=== PATIENT | female | born 1970 | race Caucasian/White ===

== ENCOUNTER 2017-10-06 12:33 | Observation (INO) | payer OTHER ==
[~2017-10-06] VITALS: Ht 152.4 cm; Wt 48.0 kg
[~2017-10-06 12:33] MED LIST: DEXAMETHASONE SOD PHOS 4 MG/ML VIAL IV ONE; ESMOLOL HCL 100 MG/10 ML VIAL IV ONE; KETOROLAC TROMETHAMINE 30 MG/ML (IVP) VIAL IV PUSH ONE; LIDOCAINE HCL 1% PF 5 ML SYRINGE OTHER ONE; ONDANSETRON HCL 4 MG/2 ML VIAL IV ONE; PHENYLEPH/NS 1000 MCG/10 ML SYR IV ONE; PROPOFOL 200 MG/20 ML AMP IV ONE; ROCURONIUM INJ 50 MG/5 ML SYRINGE IV PUSH ONE; ePHEDrine/NS 25 MG/5 ML SYRINGE IV ONE
[2017-10-06 12:43] VITALS: BP 116/55; PULSE 89; RESP 20; TEMP 98.7; O2SAT 100
[2017-10-06] MEDS ORDERED: SODIUM CHLOR 0.9% 1000 ML INJ 1,000 ML IV SCH (12:48)
[2017-10-06] MEDS ORDERED: DIATRIZOATE MEGLUM/DIATRIZOATE SOD 9 ML CUP ONE (12:53)
[2017-10-06] MEDS ORDERED: SODIUM CHLORIDE 0.9% FLUSH 10 ML FLUSH IV FLUSH PRN ×2 (13:00→19:45)
[2017-10-06] MEDS ORDERED: ONDANSETRON HCL 4 MG/2 ML VIAL IVP ONE (13:00)
[2017-10-06 13:32] LABS: AUTOMATED NEUTROPHIL # 10.5 TH/MM3 (1.8-7.7); BASOPHIL % 0.2 % (0.0-2.0); EOSINOPHIL % 0.1 % (0.0-4.0); HEMATOCRIT 43.3 % (35.0-46.0); LYMPH % 10.3 % (9.0-44.0); LYMPHOCYTE # 1.3 TH/MM3 (1.0-4.8); MEAN CELL VOLUME 91.7 FL (80.0-100.0); MEAN CORPUSCULAR HEMOGLOBIN 31.7 PG (27.0-34.0); MEAN CORPUSCULAR HGB CONC 34.6 % (32.0-36.0); MEAN PLATELET VOLUME 7.4 FL (7.0-11.0); MONO % 9.1 % (0.0-8.0); MONOCYTE # 1.2 TH/MM3 (0-0.9); NEUT % 80.3 % (16.0-70.0); PLATELET COUNT 255 TH/MM3 (150-450); RED BLOOD COUNT 4.72 MIL/MM3 (4.00-5.30); RED CELL DISTRIBUTION WIDTH 12.5 % (11.6-17.2); WHITE BLOOD COUNT 13.1 TH/MM3 (4.0-11.0)
[2017-10-06 13:38] LABS: BACTERIA, URINE RARE /hpf; BILIRUBIN, URINE NEG (NEG); BLOOD, URINE SMALL (NEG); GLUCOSE,URINE NEG (NEG); KETONE, URINE 40 mg/dL (NEG); MUCUS URINE FEW /lpf (OCC); NITRITE,URINE NEG (NEG); PH, URINE 7.5 (5.0-8.5); SQUAMOUS EPITHELIAL CELL URINE <1 /hpf (0-5); URINE COLOR YELLOW (YELLW/STRAW); URINE LEUKOCYTE ESTERASE NEG (NEG)
[2017-10-06 13:58] LABS: ALBUMIN 4.2 GM/DL (3.4-5.0); ALT (GPT) 19 U/L (10-53); AST (GOT) 13 U/L (15-37); BICARBONATE 25.8 MEQ/L (21.0-32.0); BLOOD UREA NITROGEN 8 MG/DL (7-18); CALCIUM 8.9 MG/DL (8.5-10.1); CHLORIDE 105 MEQ/L (98-107); CREATININE 0.62 MG/DL (0.50-1.00); GLOMERULAR FILTRATION RATE 102 ML/MIN (>89); GLUCOSE,RANDOM 97 MG/DL (74-106); SODIUM (NA) 138 MEQ/L (136-145)
[2017-10-06 14:00] LABS: ALKALINE PHOSPHATASE 69 U/L (45-117); TOTAL BILIRUBIN ADULT 3.1 MG/DL (0.2-1.0); TOTAL PROTEIN 8.1 GM/DL (6.4-8.2)
[2017-10-06] MEDS ORDERED: OMEP20TA93 PO (14:14)
[2017-10-06] MEDS ORDERED: MORPHINE SULFATE 4 MG/ML INJ IV PUSH ONE (14:15)
[2017-10-06 14:18] VITALS: O2SAT 100
--- NOTE | 2017-10-06 14:18 | PD ---
HPI Chief Complaint: Abdominal Pain Time Seen by Provider: 14:08 Travel History International Travel<30 days: No Contact w/Intl Traveler<30days: No Traveled to known affect area: No History of Present Illness HPI 47-year-old female presents to the emergency department for evaluation of abdominal pain that started yesterday. Patient states she went to an urgent care who referred her to the emergency department for further evaluation. Patient reports periumbilical or right lower quadrant abdominal pain that radiates to the back and across the lower abdomen. She currently rates the pain 9/10, sharp and stabbing. She denies any fevers or chills. No chest pain or shortness breath. She reports vomiting 1 at 1 AM. No diarrhea or constipation. No urinary symptoms. Patient does not currently take any prescribed medications. She reports history of hysterectomy and bladder sling. No exacerbating or alleviating factors. Moderate severity. PFSH Past Medical History Diminished Hearing: No GERD: Yes Tetanus Vaccination: < 5 Years Influenza Vaccination: No ?: Not Past Surgical History Genitourinary Surgery: Yes (bladder sling) Hysterectomy: Yes Social History Alcohol Use: Yes (on occasion) Tobacco Use: No Substance Use: No Allergies-Medications (Allergen,Severity, Reaction): Coded Allergies: sulfamethoxazole (Verified Allergy, Unknown, 10/06/17) trimethoprim (Verified Allergy, Unknown, 10/06/17) Uncoded Allergies: DEPOVERA (Adverse Reaction, Intermediate, HIVES, 10/06/17) Reported Meds & Prescriptions Reported Meds & Active Scripts Active Reported Omeprazole 20 Mg Tab 20 Mg PO DAILY Review of Systems Except as stated in HPI: all other systems reviewed are Neg Physical Exam Narrative GENERAL: Well-nourished, well-developed female patient, afebrile. SKIN: Focused skin assessment warm/dry. HEAD: Normocephalic. Atraumatic. EYES: No scleral icterus. No injection or drainage. NECK: Supple, trachea midline. No JVD or lymphadenopathy. CARDIOVASCULAR: Regular rate and rhythm without murmurs, gallops, or rubs. RESPIRATORY: Breath sounds equal bilaterally. No accessory muscle use. Lungs sounds are clear to auscultation. GASTROINTESTINAL: Abdomen soft and nondistended. Patient has tenderness to RLQ to McBurney's point. MUSCULOSKELETAL: No cyanosis, or edema. BACK: Nontender without obvious deformity. No CVA tenderness. Data Data Last Documented VS Vital Signs Date Time Temp Pulse Resp B/P (MAP) Pulse Ox O2 Delivery O2 Flow Rate FiO2 10/06/17 16:43 94 19 105/60 (75) 97 Room Air 10/06/17 12:43 98.7 Orders Orders Complete Blood Count With Diff (10/06/17 12:45) Comprehensive Metabolic Panel (10/06/17 12:45) Urinalysis - C+S If Indicated (10/06/17 12:45) Lipase (10/06/17 12:45) Ct Abd/Pel W Iv Contrast(Rout) (10/06/17 12:48) Iv Access Insert/Monitor (10/06/17 12:48) Ecg Monitoring (10/06/17 12:48) Oximetry (10/06/17 12:48) Ondansetron Inj (Zofran Inj) (10/06/17 13:00) Sodium Chlor 0.9% 1000 Ml Inj (Ns 1000 M (10/06/17 12:48) Sodium Chloride 0.9% Flush (Ns Flush) (10/06/17 13:00) Diatrizoate Liq ( Gastroview Liq) (10/06/17 12:53) Oral Contrast - Adult (10/06/17 13:40) Morphine Inj (Morphine Inj) (10/06/17 14:15) Iohexol 350 Inj (Omnipaque 350 Inj) (10/06/17 14:41) Piperacil-Tazo 4.5 Gm Premix (Zosyn 4.5 (10/06/17 17:15) Admit Order (Ed Use Only) (10/06/17 17:13) Labs Laboratory Tests Test 10/06/17 13:12 White Blood Count 13.1 TH/MM3 Red Blood Count 4.72 MIL/MM3 Hemoglobin 15.0 GM/DL Hematocrit 43.3 % Mean Corpuscular Volume 91.7 FL Mean Corpuscular Hemoglobin 31.7 PG Mean Corpuscular Hemoglobin Concent 34.6 % Red Cell Distribution Width 12.5 % Platelet Count 255 TH/MM3 Mean Platelet Volume 7.4 FL Neutrophils (%) (Auto) 80.3 % Lymphocytes (%) (Auto) 10.3 % Monocytes (%) (Auto) 9.1 % Eosinophils (%) (Auto) 0.1 % Basophils (%) (Auto) 0.2 % Neutrophils # (Auto) 10.5 TH/MM3 Lymphocytes # (Auto) 1.3 TH/MM3 Monocytes # (Auto) 1.2 TH/MM3 Eosinophils # (Auto) 0.0 TH/MM3 Basophils # (Auto) 0.0 TH/MM3 CBC Comment DIFF FINAL Differential Comment Urine Color YELLOW Urine Turbidity CLEAR Urine pH 7.5 Urine Specific [place] 1.010 Urine Protein NEG mg/dL Urine Glucose (UA) NEG mg/dL Urine Ketones 40 mg/dL Urine Occult Blood SMALL Urine Nitrite NEG Urine Bilirubin NEG Urine Urobilinogen LESS THAN 2.0 MG/DL Urine Leukocyte Esterase NEG Urine RBC 4 /hpf Urine WBC LESS THAN 1 /hpf Urine Squamous Epithelial Cells <1 /hpf Urine Bacteria RARE /hpf Urine Mucus FEW /lpf Microscopic Urinalysis Comment CULT NOT INDICATED Blood Urea Nitrogen 8 MG/DL Creatinine 0.62 MG/DL Random Glucose 97 MG/DL Total Protein 8.1 GM/DL Albumin 4.2 GM/DL Calcium Level 8.9 MG/DL Alkaline Phosphatase 69 U/L Aspartate Amino Transf (AST/SGOT) 13 U/L Alanine Aminotransferase (ALT/SGPT) 19 U/L Total Bilirubin 3.1 MG/DL Sodium Level 138 MEQ/L Potassium Level 3.6 MEQ/L Chloride Level 105 MEQ/L Carbon Dioxide Level 25.8 MEQ/L Anion Gap 7 MEQ/L Estimat Glomerular Filtration Rate 102 ML/MIN Lipase 90 U/L [facility] Medical Decision Making Medical Screen Exam Complete: Yes Emergency Medical Condition: Yes Medical Record Reviewed: Yes Differential Diagnosis Last Impressions Abdomen/Pelvis CT 10/06/17 1248 Signed Impressions: Service Date/Time: October 14:39 - CONCLUSION: The appendix is prominent. There is a calcification at the origin of the appendix and within the appendiceal lumen however the wall does not appear to be thickened and there is some residual air within the appendix. I don't see significant inflammatory stranding around the appendix to suggest appendicitis. Kareem Block MD Narrative Course 47 year old female presents to the emergency department for evaluation of right lower quadrant pain that started last night with 1 episode of vomiting. On exam , patient has tenderness over RLQ. CBC, CMP, Lipase, UA are ordered and pending. CT abdomen/pelvis with PO/IV contrast are ordered and pending. Patient is given NS 1 L IV bolus, Morphine 4 mg IV, Zofran 4 mg IV. CBC shows leukocytosis 13.1. CMP shows elevated bilirubin 3.1. Lipase is 90. UA shows no evidence of acute infection. CT abdomen/pelvis shows the appendix is prominent, there is a calcification at the origin of the appendix and within the appendiceal lumen however the wall does not appear to be thickened and there is some residual air within the appendix. I don't see significant inflammatory stranding around the appendix to suggest appendicitis. My attending physician, saw the patient and recommended general surgeon be contacted to review CT imaging. I spoke with Dr. Montaño who reviewed CT imaging. He states he will be down in approximately 30 mins to evaluate the patient. Dr. Montaño evaluated the patient and is concerned the patient has acute appendicitis. He is going to take the patient to the OR. Zosyn 4.5 gm IV is ordered. Diagnosis Primary Impression: Acute appendicitis Qualified Codes: K35.80 - Unspecified acute appendicitis Admitting Information Admitting Physician Requests: Destiny Boles Oct 06, 2017 14:18
[2017-10-06 14:19] VITALS: BP 119/59; PULSE 99; RESP 20; O2SAT 100
[2017-10-06] MEDS ORDERED: IOHEXOL 350 MG/ML 10 ML VIAL (for RAD DIAG) IVCONTRAST ONE (14:41)
--- NOTE | 2017-10-06 14:53 | RADRPT ---
EXAM DATE/TIME: 10/06/2017 14:39 [facility] COMPARISON: No previous studies available for comparison. INDICATIONS : Left sided tenderness for one day. IV CONTRAST: 80 cc Omnipaque 350 (iohexol) IV ORAL CONTRAST: Prescribed oral contrast ingested. RADIATION DOSE: 6.64 CTDIvol (mGy) MEDICAL HISTORY : None SURGICAL HISTORY : None. ENCOUNTER: Initial ACUITY: 1 day PAIN SCALE: 8/10 LOCATION: Left lower quadrant TECHNIQUE: Volumetric scanning of the abdomen and pelvis was performed. Using automated exposure control and ad justment of the mA and/or kV according to patient size, radiation dose was kept as low as reasonably achievable to obtain optimal diagnostic quality images. DICOM format image data is available electro nically for review and comparison. FINDINGS: LOWER LUNGS: The visualized lower lungs are clear. LIVER: Homogeneous density without lesion except 3 benign cysts. There is no dilation of the biliary tree. No calcified gallstones. SPLEEN: Normal size without lesion. PANCREAS: Within normal limits. KIDNEYS: Normal in size and shape. There is no mass, stone or hydronephrosis. ADRENAL GLANDS: Within normal limits. VASCULAR: There is no aortic aneurysm. BOWEL/MESENTERY: The stomach, small bowel, and colon demonstrate no acute abnormality. There is no free intraperitone al air or fluid. Small calcification at the origin of the appendix and a least 2 small calcification within the appendix itself but no definite wall thickening or periappendiceal stranding. There is flu id and air within the appendix. ABDOMINAL WALL: Within normal limits. RETROPERITONEUM: There is no lymphadenopathy. BLADDER: No wall thickening or mass. REPRODUCTIVE: Within normal limits. INGUINAL: There is no lymphadenopathy or hernia. MUSCULOSKELETAL: Within normal limits for patient age. CONCLUSION: The appendix is prominent. There is a calcification at the origin of the appendix and within the appe ndiceal lumen however the wall does not appear to be thickened and there is some residual air within the appendix. I don't see significant inflammatory stranding around the appendix to suggest appendicitis. Kareem Block MD on October 06, 2017 at 14:49 Board Certified Radiologist. This report was verified electronically.
--- NOTE | 2017-10-06 16:27 | PD ---
Data Data Last Documented VS Vital Signs Date Time Temp Pulse Resp B/P (MAP) Pulse Ox O2 Delivery O2 Flow Rate FiO2 10/06/17 14:19 99 20 119/59 (79) 100 Room Air 10/06/17 12:43 98.7 Orders Orders Complete Blood Count With Diff (10/06/17 12:45) Comprehensive Metabolic Panel (10/06/17 12:45) Urinalysis - C+S If Indicated (10/06/17 12:45) Lipase (10/06/17 12:45) Ct Abd/Pel W Iv Contrast(Rout) (10/06/17 12:48) Iv Access Insert/Monitor (10/06/17 12:48) Ecg Monitoring (10/06/17 12:48) Oximetry (10/06/17 12:48) Ondansetron Inj (Zofran Inj) (10/06/17 13:00) Sodium Chlor 0.9% 1000 Ml Inj (Ns 1000 M (10/06/17 12:48) Sodium Chloride 0.9% Flush (Ns Flush) (10/06/17 13:00) Diatrizoate Liq ( Gastroview Liq) (10/06/17 12:53) Oral Contrast - Adult (10/06/17 13:40) Morphine Inj (Morphine Inj) (10/06/17 14:15) Iohexol 350 Inj (Omnipaque 350 Inj) (10/06/17 14:41) Labs Laboratory Tests Test 10/06/17 13:12 White Blood Count 13.1 TH/MM3 Red Blood Count 4.72 MIL/MM3 Hemoglobin 15.0 GM/DL Hematocrit 43.3 % Mean Corpuscular Volume 91.7 FL Mean Corpuscular Hemoglobin 31.7 PG Mean Corpuscular Hemoglobin Concent 34.6 % Red Cell Distribution Width 12.5 % Platelet Count 255 TH/MM3 Mean Platelet Volume 7.4 FL Neutrophils (%) (Auto) 80.3 % Lymphocytes (%) (Auto) 10.3 % Monocytes (%) (Auto) 9.1 % Eosinophils (%) (Auto) 0.1 % Basophils (%) (Auto) 0.2 % Neutrophils # (Auto) 10.5 TH/MM3 Lymphocytes # (Auto) 1.3 TH/MM3 Monocytes # (Auto) 1.2 TH/MM3 Eosinophils # (Auto) 0.0 TH/MM3 Basophils # (Auto) 0.0 TH/MM3 CBC Comment DIFF FINAL Differential Comment Urine Color YELLOW Urine Turbidity CLEAR Urine pH 7.5 Urine Specific [place] 1.010 Urine Protein NEG mg/dL Urine Glucose (UA) NEG mg/dL Urine Ketones 40 mg/dL Urine Occult Blood SMALL Urine Nitrite NEG Urine Bilirubin NEG Urine Urobilinogen LESS THAN 2.0 MG/DL Urine Leukocyte Esterase NEG Urine RBC 4 /hpf Urine WBC LESS THAN 1 /hpf Urine Squamous Epithelial Cells <1 /hpf Urine Bacteria RARE /hpf Urine Mucus FEW /lpf Microscopic Urinalysis Comment CULT NOT INDICATED Blood Urea Nitrogen 8 MG/DL Creatinine 0.62 MG/DL Random Glucose 97 MG/DL Total Protein 8.1 GM/DL Albumin 4.2 GM/DL Calcium Level 8.9 MG/DL Alkaline Phosphatase 69 U/L Aspartate Amino Transf (AST/SGOT) 13 U/L Alanine Aminotransferase (ALT/SGPT) 19 U/L Total Bilirubin 3.1 MG/DL Sodium Level 138 MEQ/L Potassium Level 3.6 MEQ/L Chloride Level 105 MEQ/L Carbon Dioxide Level 25.8 MEQ/L Anion Gap 7 MEQ/L Estimat Glomerular Filtration Rate 102 ML/MIN Lipase 90 U/L MDM Supervised Visit with KARYN: Yes Narrative Course I spoke with and examined this patient. She has abdominal pain that started yesterday evening. She has nausea and decreased appetite. Her right lower quadrant is significantly tender. Labs and CT imaging were done. Her appendix is prominent but no inflammatory stranding around it. Radiologist was not overly suspicious about appendicitis but on a clinical basis it is concerning given her symptoms and right lower quadrant tenderness without any obvious explanation otherwise General surgeon Dr. Montaño is going to come down to the ER and evaluate the patient to decide whether she should have appendectomy or not Diagnosis Primary Impression: Right lower quadrant pain Brady Soares MD Oct 06, 2017 16:27
[2017-10-06 16:43] VITALS: BP 105/60; PULSE 94; RESP 19; O2SAT 97
[2017-10-06] MEDS ORDERED: PIPERACIL-TAZO 4.5 GM PREMIX 100 ML IV ONE (17:15)
--- NOTE | 2017-10-06 17:22 | HHI.HP ---
HPI Service General surgery Primary Care Physician Drew Quiles MD Admission Diagnosis acute appendicitis Chief Complaint: Abdominal pain History of Present Illness The patient is a 47-year-old female who presents with abdominal pain. The pain began as periumbilical pain last night around 7 PM. It progressed and became more severe and also localized in the right lower abdomen and she presented to the emergency department today. She has had vomiting and nausea. Denies fever or chills. She has a past surgical history of a hysterectomy and bladder sling. She was noted to have leukocytosis of 13,000. CT abdomen and pelvis shows an enlarged appendix with appendicolith at the base. I reviewed the images. Review of Systems Constitutional: DENIES: Fever, Chills Eyes: DENIES: Eye inflammation, Eye pain Respiratory: DENIES: Cough, Wheezing Cardiovascular: DENIES: Chest pain, Palpitations Gastrointestinal: COMPLAINS OF: Abdominal pain, Nausea, Vomiting Genitourinary: DENIES: Dysuria, Vaginal discharge Musculoskeletal: DENIES: Muscle aches Neurologic: DENIES: Paresthesias, Seizures Past Family Social History Past Medical History Reflux Past Surgical History Hysterectomy and bladder sling Reported Medications Omeprazole Allergies: Coded Allergies: sulfamethoxazole (Verified Allergy, Unknown, 10/06/17) trimethoprim (Verified Allergy, Unknown, 10/06/17) Uncoded Allergies: DEPOVERA (Adverse Reaction, Intermediate, HIVES, 10/06/17) Active Ordered Medications Current Medications Medications (Trade) Dose Ordered Sig/Vickie Route Start Time Stop Time Status Last Admin (NS Flush) 2 ml UNSCH PRN IV FLUSH 10/06/17 13:00 Piperacillin Sod/ Tazobactam Sod 100 ml @ 200 mls/hr ONCE ONCE IV 10/06/17 17:15 10/06/17 17:44 Family History Noncontributory Social History Occasional alcohol. No tobacco or drug use. Physical Exam Vital Signs Vital Signs Date Time Temp Pulse Resp B/P (MAP) Pulse Ox O2 Delivery O2 Flow Rate FiO2 10/06/17 16:43 94 19 105/60 (75) 97 Room Air 3/1/18 14:19 99 20 119/59 (79) 100 Room Air 10/06/17 14:18 100 Room Air 10/06/17 12:43 98.7 89 20 116/55 (75) 100 Physical Exam GENERAL: Awake and alert. Appears somewhat ill.. Cooperative. HEAD: Normocephalic. Atraumatic. EYES: Pupils equal round and reactive to light bilaterally. No scleral icterus. ENT: Moist oral mucosa. NECK: Trachea midline. CHEST: Lungs clear to auscultation bilaterally with no wheezing or rhonchi. No respiratory distress. CARDIOVASCULAR: Regular rate and rhythm. ABDOMEN: Rebound tenderness in the right lower quadrant and suprapubic area. Soft. No guarding. EXTREMITIES: No cyanosis or edema. SKIN: Warm, dry, nonjaundiced. Laboratory Laboratory Tests Test 10/06/17 13:12 White Blood Count 13.1 Red Blood Count 4.72 Hemoglobin 15.0 Hematocrit 43.3 Mean Corpuscular Volume 91.7 Mean Corpuscular Hemoglobin 31.7 Mean Corpuscular Hemoglobin Concent 34.6 Red Cell Distribution Width 12.5 Platelet Count 255 Mean Platelet Volume 7.4 Neutrophils (%) (Auto) 80.3 Lymphocytes (%) (Auto) 10.3 Monocytes (%) (Auto) 9.1 Eosinophils (%) (Auto) 0.1 Basophils (%) (Auto) 0.2 Neutrophils # (Auto) 10.5 Lymphocytes # (Auto) 1.3 Monocytes # (Auto) 1.2 Eosinophils # (Auto) 0.0 Basophils # (Auto) 0.0 CBC Comment DIFF FINAL Differential Comment Urine Color YELLOW Urine Turbidity CLEAR Urine pH 7.5 Urine Specific [place] 1.010 Urine Protein NEG Urine Glucose (UA) NEG Urine Ketones 40 Urine Occult Blood SMALL Urine Nitrite NEG Urine Bilirubin NEG Urine Urobilinogen LESS THAN 2.0 Urine Leukocyte Esterase NEG Urine RBC 4 Urine WBC LESS THAN 1 Urine Squamous Epithelial Cells <1 Urine Bacteria RARE Urine Mucus FEW Microscopic Urinalysis Comment CULT NOT INDICATED Blood Urea Nitrogen 8 Creatinine 0.62 Random Glucose 97 Total Protein 8.1 Albumin 4.2 Calcium Level 8.9 Alkaline Phosphatase 69 Aspartate Amino Transf (AST/SGOT) 13 Alanine Aminotransferase (ALT/SGPT) 19 Total Bilirubin 3.1 Sodium Level 138 Potassium Level 3.6 Chloride Level 105 Carbon Dioxide Level 25.8 Anion Gap 7 Estimat Glomerular Filtration Rate 102 Lipase 90 Result Diagram: 3/1/18 1312 10/06/17 1312 Imaging Last Impressions Abdomen/Pelvis CT 10/06/17 1248 Signed Impressions: Service Date/Time: October 14:39 - CONCLUSION: The appendix is prominent. There is a calcification at the origin of the appendix and within the appendiceal lumen however the wall does not appear to be thickened and there is some residual air within the appendix. I don't see significant inflammatory stranding around the appendix to suggest appendicitis. MD Delia Pickens VTE Risk Assessment Caprini VTE Risk Assessment: No/Low Risk (score <= 1) Caprini Risk Assessment Model Point Value = 1 Point Value = 2 Point Value = 3 Point Value = 5 Age 41-60 Minor surgery BMI > 25 kg/m2 Swollen legs Varicose veins or History of unexplained or recurrent spontaneous Oral contraceptives or hormone replacement Sepsis (< 1 month) Serious lung disease, including pneumonia (< 1 month) Abnormal pulmonary function Acute myocardial infarction Congestive heart failure (< 1 month) History of inflammatory bowel disease Medical patient at bed rest Age 61-74 Arthroscopic surgery Major open surgery (> 45 min) Laparoscopic surgery (> 45 min) Malignancy Confined to bed (> 72 hours) Immobilizing plaster cast Central venous access Age >= 75 History of VTE Family history of VTE Factor V Leiden Prothrombin [id number] Lupus anticoagulant Anticardiolipin antibodies Elevated serum homocysteine Heparin-induced thrombocytopenia Other congenital or acquired thrombophilia Stroke (< 1 month) Elective arthroplasty Hip, pelvis, or leg fracture Acute spinal cord injury (< 1 month) Prophylaxis Regimen Total Risk Factor Score Risk Level Prophylaxis Regimen 0-1 Low Early ambulation 2 Moderate Order ONE of the following: *Sequential Compression Device (SCD) *Heparin 5000 units SQ BID 3-4 Higher Order ONE of the following medications: *Heparin 5000 units SQ TID *Enoxaparin/Lovenox 40 mg SQ daily (WT < 150 kg, CrCl > 30 mL/min) *Enoxaparin/Lovenox 30 mg SQ daily (WT < 150 kg, CrCl > 10-29 mL/min) *Enoxaparin/Lovenox 30 mg SQ BID (WT < 150 kg, CrCl > 30 mL/min) AND/OR *Sequential Compression Device (SCD) 5 or more Highest Order ONE of the following medications: *Heparin 5000 units SQ TID (Preferred with Epidurals) *Enoxaparin/Lovenox 40 mg SQ daily (WT < 150 kg, CrCl > 30 mL/min) *Enoxaparin/Lovenox 30 mg SQ daily (WT < 150 kg, CrCl > 10-29 mL/min) *Enoxaparin/Lovenox 30 mg SQ BID (WT < 150 kg, CrCl > 30 mL/min) AND *Sequential Compression Device (SCD) Assessment and Plan Assessment and Plan Her overall clinical picture is consistent with acute appendicitis. I recommended proceeding to the operating room for laparoscopic possible open appendectomy. Discussed the procedure in detail with the patient and her . They understand there is also a low possibility of there being another etiology for her pain. They do desire to proceed. She will receive IV antibiotics here in the emergency department. Cruzito Montaño MD Oct 06, 2017 17:22
[2017-10-06] MEDS ORDERED: SUGAMMADEX SODIUM 200 MG/2 ML VIAL IV PUSH ONE (17:55)
[2017-10-06] MEDS ORDERED: ACETAMINOPHEN 1000 MG/100 ML 100 ML IV ONE (17:55)
[2017-10-06 18:24] VITALS: BP 112/59; TEMP 99.7
[2017-10-06] MEDS ORDERED: BUPIVACAINE/EPINEPHRINE 0.25% PF 10 ML VIAL INFIL ONE (19:15)
--- NOTE | 2017-10-06 19:37 | PD.OP ---
cc: Cruzito Montaño MD Operative Report Date of Surgery: Oct 06, 2017 Preoperative Diagnosis: (1) Acute appendicitis Postoperative Diagnosis: (1) Acute appendicitis Procedure: Laparoscopic appendectomy Anesthesia: GETA Surgeon: Cruzito Montaño [employer] Operator(s): Jason DEVRIES Operation and Findings: EBL: 5 cc Complications: None apparent Operative findings: The appendix was inflamed and beginning to be gangrenous. Procedure in detail: The patient was taken to the operating room placed in the supine position with left arm tucked. General endotracheal anesthesia was induced and the abdomen was prepped and draped in usual sterile fashion. Surgical timeout was performed to verify correct patient procedure and site. Perioperative antibiotics were administered as necessary. Local anesthetic was injected in the skin and subcutaneous tissue in the left lower abdomen and a 5 mm incision made. Using the 5 mm Optiview trocar with laparoscope the abdomen was directly entered. Was then insufflated to 15 mmHg with CO2 gas which the patient tolerated well. The patient was then placed in Trendelenburg position and turned slightly to the left. A 12 mm port was placed under laparoscopic visualization in the suprapubic area and a 5 mm port superior to the umbilicus. Attention was turned to the right lower quadrant and the appendix was visualized. It was noted to be inflamed and dilated with gangrenous changes. The mesoappendix was taken down with the Harmonic scalpel. Two #1 PDS Endoloops were placed at the base the appendix and the appendix transected with Harmonic scalpel. It was then removed using an Endo Catch bag. The appendiceal stump was intact with no leakage. There was no purulent fluid identified in the abdomen was allowed to desufflate. The fascia at the 12 mm port site was closed with a single 0 Vicryl suture. Skin closed with subcuticular Monocryl as well as Dermabond. The patient tolerated the procedure well was extubated and taken to PACU in stable condition. Cruzito Montaño MD Oct 06, 2017 19:37
[2017-10-06] MEDS ORDERED: Post-op Orders (for Pharmacy) XX ONE (19:45)
[2017-10-06] MEDS ORDERED: ACETAMINOPHEN/HYDROcodone 325 MG/5 MG TAB PO PRN (19:45)
[2017-10-06] MEDS ORDERED: NALOXONE HCL 0.4 MG/ML AMP IV PUSH PRN (19:45)
[2017-10-06] MEDS ORDERED: ACETAMINOPHEN/HYDROcodone 325 MG/10 MG TAB PO PRN (19:45)
[2017-10-06] MEDS ORDERED: diphenhydrAMINE HCL 50 MG/ML VIAL IV PUSH PRN (19:45)
[2017-10-06] MEDS ORDERED: MORPHINE SULFATE 4 MG/ML INJ IV PUSH PRN (19:45)
[2017-10-06] MEDS ORDERED: ONDANSETRON HCL 4 MG/2 ML VIAL IV PUSH PRN (19:45)
[2017-10-06] MEDS ORDERED: DO NOT ADM ANY ANTICOAGULANT DRUGS PRN (19:48)
[2017-10-06] MEDS ORDERED: MIDAZOLAM HCL 2 MG/2 ML VIAL ONE (19:58)
[2017-10-06 20:00] VITALS: BP 86/50; PULSE 78; RESP 16; TEMP 96.6; O2SAT 96
[2017-10-06] MEDS: LACTATED RINGER'S 1000 ML INJ 1,000 ML IV SCH (20:00)
[2017-10-06] MEDS ORDERED: *MEPERIDINE 25 MG INJ VIAL PERIprocedural Use ONLY ONE (20:04)
[2017-10-06] MEDS ORDERED: SODIUM CHLORIDE 0.9% FLUSH 10 ML FLUSH IV FLUSH SCH (21:00)
[2017-10-07] VITALS: BP 87/52; PULSE 68; RESP 18; TEMP 97.1; O2SAT 96
[2017-10-07] MEDS: LACTATED RINGER'S 1000 ML INJ 1,000 ML IV SCH (05:08)
[2017-10-07 08:00] VITALS: BP 90/50; PULSE 68; RESP 17; TEMP 98.1; O2SAT 97
[2017-10-07] MEDS ORDERED: HYDR-3516 PO (08:37)
--- NOTE | 2017-10-07 08:39 | HHI.PR ---
Subjective Subjective Notes She feels much better. Tolerating pancakes this morning. BP is somewhat low and she says it is always low. She has been out of bed multiple times without any dizziness of lightheadedness. Objective Vitals/I&O Vital Signs Date Time Temp Pulse Resp B/P (MAP) Pulse Ox O2 Delivery O2 Flow Rate FiO2 10/07/17 08:00 98.1 68 17 90/50 (63) 97 10/06/17 20:45 Nasal Cannula 2 Labs Laboratory Tests Test 10/06/17 13:12 White Blood Count 13.1 Red Blood Count 4.72 Hemoglobin 15.0 Hematocrit 43.3 Mean Corpuscular Volume 91.7 Mean Corpuscular Hemoglobin 31.7 Mean Corpuscular Hemoglobin Concent 34.6 Red Cell Distribution Width 12.5 Platelet Count 255 Mean Platelet Volume 7.4 Neutrophils (%) (Auto) 80.3 Lymphocytes (%) (Auto) 10.3 Monocytes (%) (Auto) 9.1 Eosinophils (%) (Auto) 0.1 Basophils (%) (Auto) 0.2 Neutrophils # (Auto) 10.5 Lymphocytes # (Auto) 1.3 Monocytes # (Auto) 1.2 Eosinophils # (Auto) 0.0 Basophils # (Auto) 0.0 CBC Comment DIFF FINAL Differential Comment Urine Color YELLOW Urine Turbidity CLEAR Urine pH 7.5 Urine Specific [place] 1.010 Urine Protein NEG Urine Glucose (UA) NEG Urine Ketones 40 Urine Occult Blood SMALL Urine Nitrite NEG Urine Bilirubin NEG Urine Urobilinogen LESS THAN 2.0 Urine Leukocyte Esterase NEG Urine RBC 4 Urine WBC LESS THAN 1 Urine Squamous Epithelial Cells <1 Urine Bacteria RARE Urine Mucus FEW Microscopic Urinalysis Comment CULT NOT INDICATED Blood Urea Nitrogen 8 Creatinine 0.62 Random Glucose 97 Total Protein 8.1 Albumin 4.2 Calcium Level 8.9 Alkaline Phosphatase 69 Aspartate Amino Transf (AST/SGOT) 13 Alanine Aminotransferase (ALT/SGPT) 19 Total Bilirubin 3.1 Sodium Level 138 Potassium Level 3.6 Chloride Level 105 Carbon Dioxide Level 25.8 Anion Gap 7 Estimat Glomerular Filtration Rate 102 Lipase 90 Radiology Last Impressions Abdomen/Pelvis CT 10/06/17 1248 Signed Impressions: Service Date/Time: October 14:39 - CONCLUSION: The appendix is prominent. There is a calcification at the origin of the appendix and within the appendiceal lumen however the wall does not appear to be thickened and there is some residual air within the appendix. I don't see significant inflammatory stranding around the appendix to suggest appendicitis. Kareem Block MD Narrative Exam NAD Abd: soft, inc c/d/i, mild post op ttp A/P Assessment and Plan POD 1 s/p lap appy. Doing well. D/c home. Reg diet. Activity- avoid heavy lifting. F/u in two weeks. Rx norco. Cruzito Montaño MD Oct 07, 2017 08:39
[2017-10-07 09:25] VITALS: O2SAT 97
== END 2017-10-07 10:59 | disposition home or self-care (01) ==
LOC: NEPC 12:33 → NEDA 17:15 → NEPHCDU 18:31 → N07A 21:00
PROVIDERS: ADMIT Surgery; ATTEND Surgery
DX: K35.80 Unspecified acute appendicitis (principal); R17 Unspecified jaundice; K21.9 Gastro-esophageal reflux disease without esophagitis; Z88.2 Allergy status to sulfonamides
CPT/HCPCS: 00840; 44970; 74177; 80053; 81001; 83690; 85025; 88304; 94150; 96361; 96365; 96375; 99285; G0378; J0131; J1100; J1885; J2175; J2250; J2270; J2370; J2405; J2543; J3010; J7030; J7120; Q9963; Q9967